=== PATIENT | male | born 1935 | race Asian ===

== ENCOUNTER 2017-08-23 19:42 | Emergency (ER) | payer MEDICARE, OTHER ==
[~2017-08-23] VITALS: Ht 167.6 cm; Wt 58.1 kg
[~2017-08-23 19:42] MED LIST: ASP81EC PO; ATOR20TA50 PO; COLC0.6T56 PO; METO50TA7 PO
[2017-08-23 19:50] VITALS: BP 140/78
== END 2017-08-24 | disposition left against medical advice (07) ==
LOC: ER 19:42
DX: R07.9 Chest pain, unspecified (principal); Z53.21 Procedure and treatment not carried out due to patient leaving prior to being seen by health care provider
CPT/HCPCS: 93005